=== PATIENT | female | born 1980 | race Caucasian/White ===

== ENCOUNTER → 2017-11-10 13:02 | Outpatient (CLI) | payer OTHER, SELFPAY ==
[2017-11-15 14:23] LABS: HPV Reflexed? NOT INDICATED
== END ==
PROVIDERS: Visit Provider Obstetrics & Gynecology
DX: Z12.4 Encounter for screening for malignant neoplasm of cervix (principal)
CPT/HCPCS: 88175; G0145

== ENCOUNTER → 2019-01-04 | Outpatient (CLI) | payer SELFPAY ==
[2019-01-06 13:28] LABS: HPV Reflexed? NOT INDICATED
== END | disposition home or self-care (01) ==
PROVIDERS: Visit Provider Obstetrics & Gynecology
DX: Z12.4 Encounter for screening for malignant neoplasm of cervix (principal)
CPT/HCPCS: 88175; G0145